=== PATIENT | male | born 1955 | race Caucasian/White ===

== ENCOUNTER 2019-08-29 00:48 | Emergency (ER) | payer OTHER, SELFPAY ==
--- NOTE | ~2019-08-29 | XR_ITS ---
EXAMINATION: XR abdomen/kub 1V DATE: 08/29/2019 02:38 INDICATION: Kidney stone TECHNIQUE: A supine view of the abdomen was obtained. COMPARISON: CT dated 08/29/2019 FINDINGS: Delayed left nephrogram with mild left hydroureteronephrosis extending to the distalmost left ureter where there is a tiny obstructing stone measuring 1-2 mm on the prior CT. Excreted contrast is seen i n the nondilated right renal collecting system and proximal to mid right ureter. Contrast opacificati on of the incompletely distended bladder. Couple phleboliths in the right hemipelvis. Normal bowel ga s pattern. IMPRESSION: 1. Obstructing 1-2 mm stone at the distalmost left ureter with delayed left nephrogram and mild left hydroureteronephrosis. Reviewed, dictated and finalized at location A. IMPRESSION: 1. Obstructing 1-2 mm stone at the distalmost left ureter with delayed left nep hrogram and mild left hydroureteronephrosis.
--- NOTE | ~2019-08-29 | CT_ITS ---
EXAMINATION: CT abdomen pelvis w con INDICATION: Left lower abdominal pain TECHNIQUE: Computed tomographic images of the abdomen and pelvis were obtained after the administrati on of 100 cc of Omnipaque 350 intravenous contrast. The dose-length product (DLP) was 408.75 mGy-cm. Automated exposure control and iterative reconstruction technique were employed. COMPARISON: 09/30/2016 FINDINGS: Minimal dependent atelectasis is present in the lung bases. The heart size is normal. Small stable nodules of the visualized lung bases are consistent with old granulomatous disease. The liver , spleen, pancreas, gallbladder, and adrenal glands are normal. Cysts of the kidneys measure up to 1. 6 cm on the left. There is a 2 mm stone in the distal left ureter which causes mild left hydrouretero nephrosis. There is perinephric stranding surrounding the left kidney. Nonobstructing left kidney sto johann measure up to 2 mm. No pathologically enlarged abdominal or pelvic lymph nodes are identified. Th ere is no free intraperitoneal gas or evidence of bowel obstruction. The appendix is normal. There is calcified atherosclerosis of the aorta and many of the other arteries. Colonic diverticulosis is pre sent without evidence of diverticulitis. IMPRESSION: 1. 2 mm stone of the distal left ureter causing mild left hydroureteronephrosis. Left perinephric fat stranding could suggest superimposed pyelonephritis. 2. Nonobstructing left nephrolithiasis. Reviewed, dictated and finalized at location B. IMPRESSION: 1. 2 mm stone of the distal left ureter causing mild left hydroureteronephrosis . Left perinephric fat stranding could suggest superimposed pyelonephritis. 2. Nonobstructing left nephrolithiasis.
--- NOTE | 2019-08-29 00:55 | ED.ABDPAIN ---
HPI - Abdominal Pain General Chief Complaint: Abdominal Pain Stated Complaint: abdo pain Time Seen by Provider: 08/29/19 00:54 Source: patient Mode of arrival: ambulatory Limitations: no limitations History of Present Illness HPI narrative: Pt is a 64 y/o male who presents to the ED with c/o LLQ ABD pain that started at 1900 last night. He denies N/V/D, or a fever. Pt states that he has a H/O arthritis and is Rx Vikodin. He took Vicodin at 2030 last night with no relief. MD elicited complaint: abdominal pain Onset (ago): hour(s) (6) Location: LLQ Relieving factors: nothing Treatments prior to arrival: prescription analgesics (Vicodin) Related Data Home Medications Medication Instructions Recorded Confirmed aspirin 81 mg PO DAILY 08/29/19 atorvastatin 20 mg PO DAILY 08/29/19 carvedilol 25 mg PO DAILY 08/29/19 celecoxib 200 mg PO DAILY 08/29/19 finasteride 5 mg PO DAILY 08/29/19 hydrocodone-acetaminophen 1 tablet PO TID PRN 08/29/19 metformin 1,000 mg PO DAILY 08/29/19 whszwysk-epz-tkczn-vit K-lycop 1 tablet PO DAILY 08/29/19 [Men's Multivitamin] omega 8-fdo-gia-fish oil [Fish Oil] 2 cap PO DAILY 08/29/19 pantoprazole 40 mg PO DAILY 08/29/19 ramipril 2.5 mg PO DAILY 08/29/19 tamsulosin 0.4 mg PO DAILY 08/29/19 Allergies Allergy/AdvReac Type Severity Reaction Status Date / Time No Known Allergies Allergy Verified 08/29/19 00:57 Review of Systems Review of Systems: All systems reviewed & are unremarkable except as noted in HPI and below Constitutional: Constitutional: Denies fever(s) Gastrointestinal: Gastrointestinal: Reports abdominal pain (LLQ), Denies diarrhea, Denies nausea and Denies vomiting PMFSH Past Medical History Medical History (Updated 08/29/19 @ 02:45 by Suresh Shen DO) Arthritis Surgical History Surgical History (Updated 08/29/19 @ 01:01 by Christen Burt) No significant past surgical history Social History Social History Smoking status: Former smoker Alcohol intake: never Gender identity (if verbalized by the patient): Male Exam Narrative: Exam Narrative: APPEARANCE: No acute distress, nontoxic, resting in bed HEENT: Normocephalic, atraumatic, OMM RESPIRATORY: No respiratory distress, clear to auscultation bilaterally with no rhonchi wheezing or rales CARDIOVASCULAR: RRR s murmur ABDOMINAL: Soft, nondistended, tender palpation left lower quadrant left lower quadrant, no tenderness right upper quadrant right lower quadrant, no rebound or guarding, left flank tenderness MUSCULOSKELETAl: Moves all extremities. No clubbing, cyanosis or edema. NEURO: Awake and alert. Following commands, speech normal, no focal deficits SKIN:: Warm, dry. Normal Color PSYCHIATRIC: Normal affect/mood Course Course Emergency Course: Patient states pain is improved at this time. States mild pain but states he drove himself to the emergency department does not have a ride and does not wish any further narcotics. Patient does have Casco and Flomax at home Discussed with patient results of workup and diagnosis. Discussed need for follow-up with primary care, proper use of medication, and reasons to return to the emergency department. Patient understands and agrees to current treatment plan Vital Signs Vital signs: Vital Signs Temperature 98.6 F 08/29/19 00:58 Pulse Rate 51 L 08/29/19 00:58 Respiratory Rate 22 H 08/29/19 00:58 Blood Pressure 160/72 H 08/29/19 00:58 Pulse Oximetry 100 08/29/19 00:58 Temperature 98.6 F 08/29/19 00:58 Pulse Rate 51 L 08/29/19 00:58 Respiratory Rate 22 H 08/29/19 00:58 Blood Pressure 160/72 H 08/29/19 00:58 Pulse Oximetry 100 08/29/19 00:58 MDM - Abdominal Pain Lab Data Result diagrams: 08/29/19 01:05 08/29/19 01:25 Labs: Lab Results 08/29/19 08/29/19 08/29/19 Range/Units 01:05 01:05 01:25 WBC 16.9 H (4.5-10.0) K/mm3 RBC
[2019-08-29 00:58] VITALS: BP 160/72; PULSE 51; RESP 22; TEMP 37; O2SAT 100
--- NOTE | 2019-08-29 01:01 | PC.NURSE ---
RN asked pt to urinate pt states he can't because he has prostate issues. RN asked pt if staff could straight cath him. pt refusing. RN asked pt how he voids normally. pt reports he just goes when it goes.
[2019-08-29 01:17] LABS: Basophils Absolute Auto 0.1 K/mm3 (0.0-0.1); Basophils Percent Auto 0.4 % (0.2-1.2); Hematocrit 39.9 % (42.0-52.0); Hemoglobin 13.4 g/dL (14.0-18.0); Immature Granulocyte Absolute 0.08 K/mm3 (0.00-0.031); Immature Granulocyte Percent A 0.5 % (0-0.5); Lymphocytes Absolute Auto 2.13 K/mm3 (0.9-3.2); Lymphocytes Percent Auto 12.6 % (18.3-44.2); Mean Corpuscular HGB Conc 33.6 g/dl (32-36); Mean Corpuscular Volume 89.3 fl (80-100); Mean Platelet Volume 9.6 fl (7.4-10.4); Monocytes Absolute Auto 0.8 K/mm3 (0.1-0.6); Monocytes Percent Auto 4.8 % (2.6-8.5); Neutrophils Absolute Auto 13.8 K/mm3 (1.3-6.7); Neutrophils Percent Auto 81.7 % (45.5-73.1); Platelet Count Result 264 k/mm3 (150-375); Red Blood Count 4.47 M/mm3 (4.6-6.20); White Blood Count 16.9 K/mm3 (4.5-10.0)
--- NOTE | 2019-08-29 01:19 | PC.NURSE ---
Patient being taken to radiology.
[2019-08-29 01:28] LABS: Estimated CRCL calculation 49 ml/min; Estimated Glomerular Filt Rate > 60
[2019-08-29 01:29] LABS: Alanine Aminotransferase 20 U/L (4-50); Albumin Level 4.1 g/dL (3.5-5.1); Alkaline Phosphatase 110 U/L (38-126); Aspartate Amino Transferase 17 U/L (17-59); Bilirubin,Total 0.6 mg/dL (0.2-1.3); Blood Urea Nitrogen 16 mg/dL (9-20); Calcium 8.9 mg/dL (8.4-10.2); Carbon Dioxide 23 mmol/L (22-30); Chloride 105 mmol/L (98-107); Estimated CRCL calculation 53 ml/min; Estimated Glomerular Filt Rate > 60; Glucose 165 mg/dL (75-110); Lipase 92 U/L (23-300); Potassium 3.5 mmol/L (3.4-5.0); Sodium 138 mmol/L (137-145)
[2019-08-29] MEDS: KETOROLAC 30 MG/ML VIAL (*BKC) IV PUSH (01:38)
[2019-08-29 02:33] LABS: Add Urine Microscopic? YES; Appearance Urine Clear (Clear); Bilirubin Urine Negative (Negative); Blood Urine Negative (Negative); Color Urine Yellow (Yellow); Glucose Urine UA Negative (Negative); Ketones Urine 1+ mg/dL (Negative); Leukocyte Esterase Ur Negative LEU/UL (Negative); Mucus Urine Rare /lpf; Nitrate Urine Negative (Negative); Protein Urine Negative (Negative); Squamous Epithelial Cell Urine Rare /hpf (Few); Urobilinogen Urine Negative mg/dL (<2.0); WBC Urine 0-3 /hpf
[2019-08-29 03:21] VITALS: BP 130/70; PULSE 65; RESP 20; O2SAT 98
== END 2019-08-29 03:10 | disposition home or self-care (01) ==
PROVIDERS: Emergency Provider Emergency Medicine; PCP Family Medicine Adolescent Medicine
DX: N13.2 Hydronephrosis with renal and ureteral calculous obstruction (principal); M19.90 Unspecified osteoarthritis, unspecified site; Z87.891 Personal history of nicotine dependence
CPT/HCPCS: 36415; 74018; 74177; 80053; 81001; 83690; 85025; 96374; 99284; J1885; Q9967

== ENCOUNTER 2020-06-07 00:31 | Outpatient (CLI) | payer OTHER, SELFPAY ==
[2020-06-07 18:50] LABS: SARS-CoV-2 RNA PCR Negative
== END 2020-06-07 00:32 | disposition home or self-care (01) ==
LOC: ANHCOVIDDT 00:31
PROVIDERS: PCP Family Medicine Adolescent Medicine; Visit Provider Urology
DX: Z01.812 Encounter for preprocedural laboratory examination (principal); Z20.822 Contact with and (suspected) exposure to COVID-19
CPT/HCPCS: C9803; U0003

== ENCOUNTER 2020-06-07 08:16 | Outpatient (CLI) | payer OTHER, SELFPAY ==
[2020-06-07 09:02] LABS: Anion Gap 7 mmol/L (8-16); Blood Urea Nitrogen 14 mg/dL (9-20); Calcium 9.1 mg/dL (8.4-10.2); Carbon Dioxide 30 mmol/L (22-30); Chloride 103 mmol/L (98-107); Estimated Glomerular Filt Rate > 60; Glucose 227 mg/dL (75-110); Potassium 3.9 mmol/L (3.4-5.0); Sodium 140 mmol/L (137-145)
== END 2020-06-07 08:17 | disposition home or self-care (01) ==
LOC: ANHSURGERY 08:19
PROVIDERS: Anesthesiology; PCP Family Medicine Adolescent Medicine; Visit Provider Urology
DX: Z01.818 Encounter for other preprocedural examination (principal); E11.9 Type 2 diabetes mellitus without complications
CPT/HCPCS: 36415; 80048

== ENCOUNTER 2020-06-10 00:17 | Day surgery (SDC) | payer OTHER, SELFPAY ==
--- NOTE | 2020-06-02 08:40 | P.HP_ITS ---
History of Present Illness History of Present Illness Consent: Risks, benefits, and alternatives have been discussed and questions answered. Patient agrees to proceed with procedure. Chief complaint: BPH Narrative: Andrew Damon is a 64 year old male with longstanding BPH becoming refractory to combination medical therapy. Cystoscopy and TRUS show a 20gm prosate with predominately lateral lobe enlargement. We've discussed alternative treatment options for bladder outlet obstruction, including TURP, Rezum, Green light laser and Urolift and he's elected for the later. He's aware of risks including, but not limited to, failure to correct his symptoms, hemat uria, incontinence and retrograde ejaculation. Review of Systems Cardiovascular: Cardiovascular: Denies chest pain, Denies lightheadedness, Denies palpitations and Denies dyspnea Respiratory: Respiratory: Denies dyspnea Gastrointestinal: Gastrointestinal: Denies diarrhea, Denies nausea and Denies vomiting Genitourinary: Genitourinary: Denies hematuria and Denies dysuria Endocrine: Endocrine: Denies palpitations PMFSH Past Medical History Medical History Arthritis Surgical History Surgical History No significant past surgical history Social History Social History Smoking status: Former smoker Alcohol intake: never Gender identity (if verbalized by the patient): Male Meds Home Medications and Allergies Home Medications Medication Instructions Recorded Confirmed Type aspirin 81 mg PO DAILY 08/29/19 History atorvastatin 20 mg PO DAILY 08/29/19 History carvedilol 25 mg PO DAILY 08/29/19 History celecoxib 200 mg PO DAILY 08/29/19 History finasteride 5 mg PO DAILY 08/29/19 History hydrocodone-acetaminophen 1 tablet PO TID PRN 08/29/19 History ibuprofen [IBU] 600 mg PO Q6H PRN #20 tablet 08/29/19 Rx metformin 1,000 mg PO DAILY 08/29/19 History mrbicvke-emh-jnjfq-vit K-lycop 1 tablet PO DAILY 08/29/19 History [Men's Multivitamin] omega 0-phf-vwm-fish oil [Fish Oil] 2 cap PO DAILY 08/29/19 History ondansetron 4 mg PO Q6H PRN #10 tablet 08/29/19 Rx pantoprazole 40 mg PO DAILY 08/29/19 History ramipril 2.5 mg PO DAILY 08/29/19 History tamsulosin 0.4 mg PO DAILY 08/29/19 History Allergies Allergy/AdvReac Type Severity Reaction Status Date / Time No Known Allergies Allergy Verified 08/29/19 00:57 Exam Const: General: no acute distress Resp: Effort & Inspection: normal respiratory effort GI: Inspection: non-distended GI Palp: No abdominal tenderness and No Guarding due to palpation present (GI) Auscultation: normal bowel sounds Assessment and Plan Assessment and plan (1) BPH loc w urin obs/LUTS: Code(s): N40.1 - Benign prostatic hyperplasia with lower urinary tract symptoms Status: Acute Assessment and Plan: * UroLift
[2020-06-02 13:38] VITALS: BMI 24.1
--- NOTE | 2020-06-09 11:07 | WPDANESEPPF ---
Anes - Initial Pre Proc Eval Procedure: Operation Date: 06/10/20 07:30 Proposed Procedures p Urolift - Porfirio Martinez MD Date/Time: 06/09/20 11:07 Surgeon: Porfirio Martinez MD Pre Op Diagnosis: BPH Patient Data Age: 64 Gender: M Height: 1.65 m Weight: 65.9 kg Allergies Allergy/AdvReac Type Severity Reaction Status Date / Time No Known Allergies Allergy Verified 06/10/20 06:00 Home Medications Medication Instructions Recorded Confirmed Type aspirin 81 mg PO DAILY 08/29/19 06/10/20 History atorvastatin 20 mg PO DAILY 08/29/19 06/10/20 History carvedilol 25 mg PO BID 08/29/19 06/10/20 History celecoxib 200 mg PO DAILY 08/29/19 06/10/20 History metformin 1,000 mg PO BID 08/29/19 06/10/20 History nqlfiyen-aeg-ewzas-vit K-lycop 1 tablet PO DAILY 08/29/19 06/10/20 History [Men's Multivitamin] omega 9-dec-btv-fish oil [Fish Oil] 2 cap PO BID 08/29/19 06/10/20 History pantoprazole 40 mg PO DAILY 08/29/19 06/10/20 History ramipril 2.5 mg PO DAILY 08/29/19 06/10/20 History tamsulosin 0.4 mg PO BID 08/29/19 06/10/20 History hydrocodone-acetaminophen 1 tablet PO TID PRN 06/02/20 06/10/20 History Patient hx anesthesia problems: none Family hx anesthesia problems: none PMFSH Past Medical History Medical History (Updated 06/09/20 @ 11:08 by Juan Sauceda DO) Arthritis BPH (benign prostatic hyperplasia) Diabetes type 2, controlled GERD (gastroesophageal reflux disease) Hyperlipidemia Hypertension Neuropathy Surgical History Surgical History (Updated 06/09/20 @ 11:08 by Juan Sauceda DO) History of coronary artery stent placement x3 No significant past surgical history Social History Social History Smoking packs per day: 1 Smoking cigarettes per day: 20.0 Years smoked: 37 Smoking pack-years: 37.00 Smoking status: Former smoker Smoking end date: 06/02/08 Alcohol intake: never Substance use: current Substance use type: marijuana Living arrangements: with family Gender identity (if verbalized by the patient): Male Spiritual care concerns: No Anes - Eval Final PreProcedure Day of Procedure 06/09/20 11:07 Patient weight: normal Heart: regular rate and rhythm Lungs: clear to auscultation and normal air movement Airway: Mallampati scale class II Neurological: alert and oriented Last oral intake: >/= 8 hours ASA classification: III Emergent: no Anesthetic plan: proceed Anesthesia type and monitoring: general LMA and standard monitoring Informed Consent: The patient's anesthetic plan and its attendant risks and benefits were discussed with the patient/family/POA. Questions were solicited and answers provided to the satisfaction of the patient/family/POA.
[2020-06-10] VITALS (7 sets, daily range): BP systolic 90–136; BP diastolic 43–89; PULSE 56–67; RESP 11–20; TEMP 36.2–36.7; O2SAT 99–100
[2020-06-10] MEDS: LACTATED RINGERS 1,000 ML 30 ML IV CONT (06:22)
[2020-06-10] MEDS: LIDOCAINE HCL 2% GEL UROJET 10 ML PKG MUCOUS MEM (07:05)
[2020-06-10 07:07] LABS: Glucose Point of Care 110 (65-105)
--- NOTE | 2020-06-10 07:13 | WPDHPUPDATE1 ---
History and Physical Update Update Date/Time: 06/10/20 07:13 History and Physical has been reviewed, including an updated exam of the patient. There are NO changes in the patient's condition. Risks, benefits, and alternatives have been discussed and questions answered. Patient agrees to proceed with procedure.
[2020-06-10] MEDS: ceFAZolin 2 GM/D5W 50 ML 2 GM/50 ML BAG IVPB (07:17)
--- NOTE | 2020-06-10 07:37 | P.OP_ITS ---
Procedure Note - Detailed Date of procedure: 06/10/20 Pre-op diagnosis: BPH Post-op diagnosis: same Procedure performed: UroLift Description of procedure: The patient was prepped and draped in a routine fashion after the uneventful induction of a general LMA anesthetic. A 20F cystoscope was inserted into the bladder. The cystoscopy bridge was replaced with a UroLift delivery device. The first treatment site was the patient's right side approximately 1.5cm distal to the bladder neck. The distal tip of the delivery device was then angled laterally approximately 20 degrees at this position to compress the lateral lobe. The trigger was pulled, thereby deploying a needle containing the implant through the prostate. The needle was then retracted, allowing one end of the implant to be delivered to the capsular surface of the prostate. The implant was then tensioned to assure capsular seating and removal of slack monofilament. The device was then angled back toward midline and slowly advanced proximally (typically 3 to 4 mm) until cystoscopic verification of the monofilament being centered in the delivery bay. The urethral end piece was then affixed to the monofilament thereby tailoring the size of the implant. Excess filament was then severed. The delivery device was then re-advanced into the bladder. The delivery device was then replaced with cystoscope and bridge and the implant location and opening effect was conf irmed cystoscopically. The same procedure was then repeated on the left side, and two additional implants were delivered just proximal to the verumontanum, again one on right and one on left side of the prostate, following the same technique. Therefore, a total of 4 implants were delivered. A final cystoscopy was conducted first to inspect the location and state of each implant and second, to confirm the presence of a continuous anterior channel was present through the prostatic urethra with irrigation flow turned off. The bladder was then filled with 150 cc irrigation fluid to assist the patient in void trial after the procedure, and all instruments were removed. At this point the cystoscope was removed and the patient was taken to the PACU in good condition. Anesthesia: GLMA Surgeon: Porfirio Martinez MD Computer Numerical Control Programmer: None Estimated blood loss (mL): 0 Drains: No Packing: No Pathology: none sent Complications: No immediate complications Condition: stable Disposition: PACU
[2020-06-10 07:49] LABS: Glucose Point of Care 105 (65-105)
[2020-06-10] MEDS: oxyCODONE HCL (*CRX) 5 MG TAB IR PO (08:49)
== END 2020-06-10 09:30 | disposition home or self-care (01) ==
PROVIDERS: PCP Family Medicine Adolescent Medicine; Visit Provider Urology
PROC: 0T7D8DZ Dilation of Urethra with Intraluminal Device, Via Natural or Artificial Opening Endoscopic (ICD-10-PCS; CPT 52441; principal; 2020-06-10 07:30)
DX: N40.1 Benign prostatic hyperplasia with lower urinary tract symptoms (principal); M19.90 Unspecified osteoarthritis, unspecified site; Z79.82 Long term (current) use of aspirin; Z79.84 Long term (current) use of oral hypoglycemic drugs; E11.40 Type 2 diabetes mellitus with diabetic neuropathy, unspecified; K21.9 Gastro-esophageal reflux disease without esophagitis; I10 Essential (primary) hypertension; E78.5 Hyperlipidemia, unspecified; Z87.891 Personal history of nicotine dependence
CPT/HCPCS: 52441; 52442 ×3; 36415; 80048; A9270; C9803; J0690; J1100; J2001; J2250; J2405; J2704; J3010; J7120; L8699; U0003

== ENCOUNTER 2024-03-09 19:17 | Emergency (ER) | payer MEDICARE, SELFPAY ==
--- NOTE | 2024-03-09 19:22 | ED.DENTAL ---
HPI - Dental/Oral General Chief complaint: Dental/Oral Stated complaint: left side tooth pain,swelling Time Seen by Provider: 03/09/24 19:22 Source: patient, RN notes reviewed and old records reviewed Mode of arrival: ambulatory Limitations: no limitations History of Present Illness HPI Narrative: Patient presents with of right-sided facial swelling and pain. He reports that a right lower molar broke a week ago, his dentist has seen the tooth, he has an appointment for March 18 to have the remaining part of the tooth extracted. He began to notice increasing pain yesterday, awakened this morning with mild swelling and now has very significant swelling to the right side of the face. He is able to manage his own secretions. No drooling or stridor. Swelling does not extend down to the neck. Patient is still able to eat and drink. Denies any fever, chills, sweats. Denies any injury or trauma. Voices no other concerns or complaints at this time. He has been taking Vicodin, reports that he still is in significant pain Related Data Home Medications Medication Instructions Recorded Confirmed aspirin 81 mg tablet,delayed 81 mg PO DAILY 08/29/19 03/09/24 release carvedilol 25 mg tablet 25 mg PO BID 08/29/19 03/09/24 uqgqcvxh-gdasqbnt-hfstt acid 400 1 tablet PO DAILY 08/29/19 03/09/24 mcg-vit K 20 mcg-lycop 300 mcg tablet (Men's Multivitamin) ramipril 2.5 mg capsule 2.5 mg PO DAILY 08/29/19 03/09/24 Allergies Allergy/AdvReac Type Severity Reaction Status Date / Time metformin AdvReac Intermediate Diarrhea Verified 03/09/24 19:22 diclofenac AdvReac Mild Diarrhea Verified 03/09/24 19:22 Review of Systems Review of Systems: All systems reviewed & are unremarkable except as noted in HPI and below Constitutional: Constitutional: Reports no additional constitutional complaints ENT: Reports system reviewed and no additional complaints, except as documented, Reports as per HPI, Reports dental pain and Reports facial pain Cardiovascular: Cardiovascular: Reports no additional cardiovascular complaints Respiratory: Respiratory: Reports no additional respiratory complaints Gastrointestinal: Gastrointestinal: Reports no additional gastrointestinal complaints PMFSH Past Medical History Medical History Arthritis BPH (benign prostatic hyperplasia) Diabetes type 2, controlled GERD (gastroesophageal reflux disease) Hyperlipidemia Hypertension Neuropathy Surgical History Surgical History History of coronary artery stent placement x3 2008 No significant past surgical history Family History Family History Father Heart disease Social History Social History Smoking packs per day: 1 Smoking cigarettes per day: 20.0 Years smoked: 37 Smoking pack-years: 37.00 Smoking status: Former smoker Second hand tobacco smoke exposure: No Smoking end date: 06/02/08 Alcohol intake: never Substance use: current Substance use type: marijuana Lack of Transportation: No Lack of Food: Never True Current Housing: I Have Housing Concerned About Future Housing: No Difficulty Paying Gas/Electric Bills: No Difficulty Paying for Meds: No Currently Unemployed: No Education: High School Diploma/GED Difficulty w/ Childcare or Family Care: No Living arrangements: with family Occupation/Education: occupation Gender identity (if verbalized by the patient): Male Sexual Orientation (if Verbalized by the Patient): Straight or Heterosexual Spiritual care concerns: No Agree to blood products: Yes Comments At the time of my signature, I reviewed and agree with the nursing past medical, surgical, social, and family history. There is no relevant family history pertinent to the raul
[2024-03-09 19:27] VITALS: BP 148/77; PULSE 90; RESP 16; TEMP 37.2; O2SAT 99
== END 2024-03-09 19:47 | disposition home or self-care (01) ==
PROVIDERS: Emergency Provider Nurse Practitioner Family; PCP Family Medicine Adolescent Medicine
DX: K04.7 Periapical abscess without sinus (principal); Z87.891 Personal history of nicotine dependence; F12.90 Cannabis use, unspecified, uncomplicated; M19.90 Unspecified osteoarthritis, unspecified site; N40.0 Benign prostatic hyperplasia without lower urinary tract symptoms; K21.9 Gastro-esophageal reflux disease without esophagitis; E78.5 Hyperlipidemia, unspecified; I10 Essential (primary) hypertension; E11.40 Type 2 diabetes mellitus with diabetic neuropathy, unspecified; Z95.5 Presence of coronary angioplasty implant and graft
CPT/HCPCS: 99213; G0463

== ENCOUNTER 2024-07-31 15:20 | Outpatient (CLI) | payer MEDICARE, SELFPAY ==
[2024-07-31 15:45] LABS: Anion Gap 8 mmol/L (4-12); Blood Urea Nitrogen 17 mg/dL (9-20); Calcium 8.5 mg/dL (8.4-10.2); Carbon Dioxide 27 mmol/L (22-30); Chloride 107 mmol/L (98-107); Estimated Glomerular Filt Rate > 60; Glucose 75 mg/dL (65-110); Potassium 3.9 mmol/L (3.4-5.0); Sodium 142 mmol/L (137-145)
== END 2024-07-31 15:21 | disposition home or self-care (01) ==
LOC: ANHLAB 15:21
PROVIDERS: PCP Family Medicine Adolescent Medicine; Visit Provider Anesthesiology
DX: Z01.818 Encounter for other preprocedural examination (principal); K40.30 Unilateral inguinal hernia, with obstruction, without gangrene, not specified as recurrent; E11.42 Type 2 diabetes mellitus with diabetic polyneuropathy; E11.9 Type 2 diabetes mellitus without complications; E78.2 Mixed hyperlipidemia
CPT/HCPCS: 36415; 80048; 86850; 86900; 86901; 93005

== ENCOUNTER 2024-08-04 00:27 | Day surgery (SDC) | payer MEDICARE, SELFPAY ==
[2024-07-30 15:37] VITALS: BMI 26.4
--- NOTE | 2024-07-30 15:50 | PC.NURSE ---
Report to the Outpatient Waiting Room, entrance under the green pavilion located off [facility], at time _0930am on date __08/04/24 . Planned Procedure Time: ___1130am .? Time changes happen often and if your time is changed the preop area will call you the afternoon before. - You and your visitor will be asked to self-screen and do not enter if you have any COVID symptoms. Please call surgeon if you need to reschedule. - A mask is optional within the hospital at this time. Patients may have clear liquids (water, carbonated beverages, clear teas, apple juice) until 3 hours prior to surgery with a maximum of 20 ounces. - No food from midnight until time of surgery and no smoking, or chewing tobacco (or any form of nicotine). No chewing gum, candy or mints( 0830am). Take only the following medications with a SIP of water on the morning of surgery: Coreg and Hydrocodone if needed that am DO NOT STOP ANY OF YOUR OTHER PRESCRIPTION MEDICATIONS PRIOR TO SURGERY EXCEPT THE FOLLOWING Hold all vitamins and supplements for 3 days per anesthesiologist.Date to take last dose__08/27/24 Medications to discontinue per physician None Date to take last dose None Please no make-up, nail kenyan, hairspray, perfume, deodorant, or body powder the day of surgery.? No jewelry (including any body piercings) or valuables the day of surgery, leave them at home.? Please take a shower or bath the night before, or the morning of, surgery with an antibacterial soap.? Wear comfortable, loose fitting clothing.? - Jewelry must be removed prior to entering the operating room.? Rings and piercings that are not removed may be cut off. - The hospital will not accept responsibility for valuables.? - Please leave all valuables, including medications, at home the day of surgery. If you are going home after surgery, a licensed driver/refuse collector must drive you home.? - NO public transportation without another adult if you receive anesthesia. - We recommend that an adult stay with you for 24 hours following discharge. - We also recommend that you do not drive, make important decision, drink alcoholic beverages, or take any drugs that were not prescribed by your health care provider for at least 24 hours after your discharge time. Follow any additional instructions given to you from your surgeon. Telephone instructions given to ___Patient and asked if any additional questions and then verbalized understanding. Patient advised to call surgeon office or pre surgery nurse liaison [phone] if any additional questions.
[2024-08-04] VITALS (9 sets, daily range): BP systolic 117–158; BP diastolic 59–79; PULSE 58–65; RESP 11–18; TEMP 36.1–36.6; O2SAT 97–100; BMI 26.2
[2024-08-04 10:31] LABS: Glucose Point of Care 152 mg/dl (65-105)
[2024-08-04] MEDS: LACTATED RINGERS 1,000 ML 30 ML IV CONT ×2 (10:37→14:30)
[2024-08-04] MEDS: ACETAMINOPHEN 500 MG TABLET 1000 MG PO (10:38)
[2024-08-04] MEDS: KETOROLAC 15 MG/ML VIAL (*BKC) IV PUSH (10:38)
--- NOTE | 2024-08-04 10:51 | WPDANESEPPF ---
Anes - Initial Pre Proc Eval Procedure: Operation Date: 08/04/24 12:00 Proposed Procedures p Robotic Incarcerated Right Inguinal Hernia Repair with Mesh - Romy Morris MD Date/Time: 08/04/24 10:51 Surgeon: Romy Morris MD Pre Op Diagnosis: Incarcerated Right Inguinal Hernia Patient Data Age: 69 Gender: M Height: 1.65 m Weight: 71.3 kg Allergies Allergy/AdvReac Type Severity Reaction Status Date / Time metformin AdvReac Intermediate Diarrhea Verified 08/04/24 10:17 diclofenac AdvReac Mild Diarrhea Verified 08/04/24 10:17 Home Medications ?Medication ?Instructions ?Recorded ?Confirmed ?Type aspirin 81 mg tablet,delayed 81 mg PO DAILY 08/29/19 07/30/24 History release carvedilol 25 mg tablet 25 mg PO BID 08/29/19 08/04/24 History ietslrrc-ucrrdlqv-tgiso acid 400 1 tablet PO DAILY 08/29/19 08/04/24 History mcg-vit K 20 mcg-lycop 300 mcg tablet (Men's Multivitamin) ramipril 2.5 mg capsule 2.5 mg PO DAILY 08/29/19 07/30/24 History sildenafil 100 mg tablet 100 mg PO DAILY PRN sexual 02/26/23 07/30/24 Rx activity #7 tabs glimepiride 1 mg tablet See Rx Instructions .Route 11/19/23 07/30/24 Rx .COMPLEX #90 tabs atorvastatin 40 mg tablet 40 mg PO DAILY #90 tabs 01/27/24 07/30/24 Rx gabapentin 300 mg capsule 300 mg PO QHS #30 caps 03/18/24 07/30/24 Rx pantoprazole 40 mg tablet,delayed 40 mg PO DAILY #90 tabs 04/21/24 07/30/24 Rx release alfuzosin 10 mg tablet,extended 10 mg PO DAILY #90 tabs 05/19/24 07/30/24 Rx release 24 hr eszopiclone 3 mg tablet (Lunesta) 3 mg PO QHS #30 tabs 06/23/24 07/30/24 Rx saw palmetto 160 mg capsule 160 mg PO QAM 06/26/24 08/04/24 History turmeric 400 mg capsule 400 mg PO QHS 06/26/24 08/04/24 History hydrocodone 10 mg-acetaminophen 1 tablet PO TID PRN pain #90 tabs 02/03/25 03/03/25 Rx 325 mg tablet nitroglycerin 0.4 mg sublingual 0.4 mg sublingual Q5M PRN chest 07/30/24 07/30/24 History tablet pain Laboratory Tests 08/04/24 08/04/24 10:29 10:35 PT Pending INR Pending APTT Pending POC Capillary Glucose 152 H mg/dl (65-105) Patient hx anesthesia problems: none Family hx anesthesia problems: none Results Review: All pre-operative results and documents have been reviewed as part of the pre-operative evaluation. [facility] Past Medical History Medical History Neuropathy Diabetes type 2, controlled BPH (benign prostatic hyperplasia) GERD (gastroesophageal reflux disease) Hyperlipidemia Hypertension Arthritis Surgical History Surgical History History of coronary artery stent placement x3 2008 No significant past surgical history Family History Family History Father Heart disease Social History Social History Smoking packs per day: 1 Smoking cigarettes per day: 20.0 Years smoked: 37 Smoking pack-years: 37.00 Smoking status: Former smoker Tobacco type: cigarettes Second hand tobacco smoke exposure: No Smoking end date: 06/02/08 Additional smoking assessment comments: Denies nicotine Alcohol intake: never Substance use: current Substance use type: marijuana Other substance usage details: Smokes marijuana daily for medical Do You Feel Safe in your Home?: Yes Lack of Transportation: No Lack of Food: Never True Current Housing: I Have Housing Concerned About Future Housing: No Difficulty Paying Gas/Electric Bills: No Difficulty Paying for Meds: No Currently Unemployed: No Education: High School Diploma/GED Difficulty w/ Childcare or Family Care: No Living arrangements: with family Additional living arrangements comments: Step daughter and Grandson Occupation/Education: occupation Gender identity (if verbalized by the patient): Male Sexual Orientation (if Verbalized by the Patient): Straight or Heterosexual Spiritual care concerns: No Agree to blood products: Yes Anes - Eval Final PreProcedure Day of Procedure 08/04/24 10:51 Patient weight: overweight Heart: regular rate and rhythm Lungs: clear to auscultation Airway: Mallampati scale class II Neurological: alert and oriented Last oral intake: >/= 8 hours ASA classification: III Emergent: no Anesthetic plan: proceed Anesthesia type and monitoring: general GIVS and standard monitoring Results Review: All pre-operative results and documents have been reviewed as part of the pre-operative evaluation. Informed Consent: The patient's anesthetic plan and its attendant risks and benefits were discussed with the patient/family/POA. Questions were solicited and answers provided to the satisfaction of the patient/family/POA.
[2024-08-04 10:57] LABS: Prothrombin Time 13.4 Seconds (11.1-14.7)
[2024-08-04 10:58] LABS: Partial Thromboplastin Time 32.2 Seconds (22.3-36.8)
--- NOTE | 2024-08-04 11:53 | WPDHPUPDATE1 ---
History and Physical Update Update Date/Time: 08/04/24 11:53 History and Physical has been reviewed, including an updated exam of the patient. There are NO changes in the patient's condition. Risks, benefits, and alternatives have been discussed and questions answered. Patient agrees to proceed with procedure.
--- NOTE | 2024-08-04 12:24 | WPDANESEPPF ---
Anes - Initial Pre Proc Eval Procedure: Operation Date: 08/04/24 12:00 Proposed Procedures p Robotic Incarcerated Right Inguinal Hernia Repair with Mesh - Romy Morris MD Date/Time: 08/04/24 12:24 Surgeon: Romy Morris MD Pre Op Diagnosis: Incarcerated Right Inguinal Hernia Patient Data Age: 69 Gender: M Height: 1.65 m Weight: 71.3 kg Last Vital Signs Temp 98 F 08/04/24 10:20 Pulse 58 L 08/04/24 10:20 Resp 18 08/04/24 10:20 BP 147/79 H 08/04/24 10:20 Pulse Ox 98 08/04/24 10:20 O2 Del Method Room Air 08/04/24 10:20 Allergies Allergy/AdvReac Type Severity Reaction Status Date / Time metformin AdvReac Intermediate Diarrhea Verified 08/04/24 10:17 diclofenac AdvReac Mild Diarrhea Verified 08/04/24 10:17 Home Medications ?Medication ?Instructions ?Recorded ?Confirmed ?Type aspirin 81 mg tablet,delayed 81 mg PO DAILY 08/29/19 07/30/24 History release carvedilol 25 mg tablet 25 mg PO BID 08/29/19 08/04/24 History gutlknrt-jembibaq-tddih acid 400 1 tablet PO DAILY 08/29/19 08/04/24 History mcg-vit K 20 mcg-lycop 300 mcg tablet (Men's Multivitamin) ramipril 2.5 mg capsule 2.5 mg PO DAILY 08/29/19 07/30/24 History sildenafil 100 mg tablet 100 mg PO DAILY PRN sexual 02/26/23 07/30/24 Rx activity #7 tabs glimepiride 1 mg tablet See Rx Instructions .Route 11/19/23 07/30/24 Rx .COMPLEX #90 tabs atorvastatin 40 mg tablet 40 mg PO DAILY #90 tabs 01/27/24 07/30/24 Rx gabapentin 300 mg capsule 300 mg PO QHS #30 caps 03/18/24 07/30/24 Rx pantoprazole 40 mg tablet,delayed 40 mg PO DAILY #90 tabs 04/21/24 07/30/24 Rx release alfuzosin 10 mg tablet,extended 10 mg PO DAILY #90 tabs 05/19/24 07/30/24 Rx release 24 hr eszopiclone 3 mg tablet (Lunesta) 3 mg PO QHS #30 tabs 06/23/24 07/30/24 Rx saw tevino 160 mg capsule 160 mg PO QAM 06/26/24 08/04/24 History turmeric 400 mg capsule 400 mg PO QHS 06/26/24 08/04/24 History nitroglycerin 0.4 mg sublingual 0.4 mg sublingual Q5M PRN chest 07/30/24 07/30/24 History tablet pain hydrocodone 10 mg-acetaminophen 1 tablet PO TID PRN pain #90 tabs 08/04/24 Rx 325 mg tablet Laboratory Tests 08/04/24 08/04/24 10:29 10:35 PT 13.4 Seconds (11.1-14.7) INR 1.0 APTT 32.2 Seconds (22.3-36.8) POC Capillary Glucose 152 H mg/dl (65-105) Patient hx anesthesia problems: none Family hx anesthesia problems: none Results Review: All pre-operative results and documents have been reviewed as part of the pre-operative evaluation. [facility] Past Medical History Medical History Neuropathy Diabetes type 2, controlled BPH (benign prostatic hyperplasia) GERD (gastroesophageal reflux disease) Hyperlipidemia Hypertension Arthritis Surgical History Surgical History History of coronary artery stent placement x3 2008 No significant past surgical history Family History Family History Father Heart disease Social History Social History Smoking packs per day: 1 Smoking cigarettes per day: 20.0 Years smoked: 37 Smoking pack-years: 37.00 Smoking status: Former smoker Tobacco type: cigarettes Second hand tobacco smoke exposure: No Smoking end date: 06/02/08 Additional smoking assessment comments: Denies nicotine Alcohol intake: never Substance use: current Substance use type: marijuana Other substance usage details: Smokes marijuana daily for medical Do You Feel Safe in your Home?: Yes Lack of Transportation: No Lack of Food: Never True Current Housing: I Have Housing Concerned About Future Housing: No Difficulty Paying Gas/Electric Bills: No Difficulty Paying for Meds: No Currently Unemployed: No Education: High School Diploma/GED Difficulty w/ Childcare or Family Care: No Living arrangements: with family Additional living arrangements comments: Step daughter and Grandson Occupation/Education: occupation Gender identity (if verbalized by the patient): Male Sexual Orientation (if Verbalized by the Patient): Straight or Heterosexual Spiritual care concerns: No Agree to blood products: Yes Anes - Eval Final PreProcedure Day of Procedure 08/04/24 12:24 Patient weight: overweight Lungs: normal air movement Airway: Mallampati scale and special considerations (Missing L upper, and R lower teeth (prev partial missing). ) Neurological: alert and oriented Last oral intake: >/= 8 hours ASA classification: III Emergent: no Anesthetic plan: proceed Anesthesia type and monitoring: general ETT and standard monitoring Results Review: All pre-operative results and documents have been reviewed as part of the pre-operative evaluation. PTCA 2007, recent stress test reported nml, ex smoker. Neuropathy, overall good functional status. Informed Consent: The patient's anesthetic plan and its attendant risks and benefits were discussed with the patient/family/POA. Questions were solicited and answers provided to the satisfaction of the patient/family/POA.
[2024-08-04] MEDS: ceFAZolin 2 GM/D5W 50 ML 2 GM/50 ML BAG IVPB (12:40)
[2024-08-04] MEDS: BUPIVACAINE/EPINEPHRINE 0.5% 30 ML VIAL INFILTRATE (13:04)
--- NOTE | 2024-08-04 14:23 | W.PM.PROC2 ---
Procedure Note - Detailed Date of Procedure 08/04/24 Pre-op Diagnosis Incarcerated Right Inguinal Hernia Post-op Diagnosis Other ( Incarcerated right inguinal hernia, left inguinal hernia) Procedure Performed robotic assisted repair incarcerated right inguinal hernia with mesh, left inguinal hernia repair with mesh Surgeon Romy Morris MD Anesthesia General and Local Indications 69-year-old male presenting with a large incarcerated right inguinal hernia. Difficult exam given large incarcerated right inguinal hernia, suspect left inguinal hernia Findings incarcerated right inguinal hernia with cecum and appendix, moderate sized left inguinal hernia Description of Procedure Patient was brought into the operating room and placed in the supine position. After adequate induction of general anesthesia, the patient was prepped and draped in normal sterile fashion. A time-out was then done to verify the patient's identity, as well as the procedure being performed. I began by making a 8 mm incision in the supraumbilical region, a Veress needle was then placed into the peritoneal cavity. CO2 gas was then insufflated and after adequate pneumoperitoneum was achieved, the Veress needle was removed. I then placed an 8 mm trocar through this incision. I then placed the endoscope through this trocar site and under direct visualization placed 2 further 8 mm ports in the right and left mid abdomen. The [email or web address] robot was then docked to the 3 trocar sites. I then scrubbed out and went to the robotic console. Upon examining the pelvis, it was noted that the patient had a large incarcerated right inguinal hernia. The left side was examined and a moderate sized hernia defect was noted. The right side was noted to be incarcerated with cecum and appendix. This was carefully reduced and the contents were noted to be viable and grossly pathology free. Once reduced, I began by making a preperitoneal flap approximately 6 cm superior to the right sided defect. This flap was carried medially past the umbilical ligaments and laterally to the transversalis. It then began dissection of my medial compartment taking this down to the pubic tubercle. No direct defect was noted. I then began the lateral dissection taking this down to the transversalis fascia. Once these compartments were achieved, I began dissection around the cord structures. A large indirect hernia was noted at this point. Using careful dissection, was able to reduce indirect hernia sac off the cord structures. Once this was adequately done, I went ahead and placed a large piece of 3D Max mesh into the abdominal cavity. The mesh was carefully positioned, centering the center of the mesh over the indirect defect. Once this was done, was very satisfied with our repair. Using 3-0 Vicryl sutures, I tacked the mesh medially to Jose's ligament. Two lateral sutures were placed from the mesh to the transversalis fascia. I then began on the left side by making a preperitoneal flap approximately 6 cm superior to the left sided defect. This flap was carried medially past the umbilical ligaments and laterally to the transversalis. It then began dissection of my medial compartment taking this down to the pubic tubercle. A small direct defect was noted and reduced. I then began the lateral dissection taking this down to the transversalis fascia. Once these compartments were achieved, I began dissection around the cord structures. A moderate sized indirect hernia was noted at this point. Using careful dissection, was able to reduce indirect hernia sac off the cord structures. Once this was adequately done, I went ahead and placed a large piece of 3D Max mesh into the abdominal cavity. The mesh was carefully positioned, centering the center of the mesh over the indirect defect. Once this was done, was very satisfied with our repair. Using 3-0 Vicryl sutures, I tacked the mesh medially to Jose's ligament. Two lateral sutures were placed from the mesh to the transversalis fascia.I then closed the peritoneal flap bilaterally with running 2.0 V Lock suture x 2. The abdomen was then desufflated, and all ports were removed. All incisions were then closed with the 4.0 monocryl suture. Dermabond was placed on each wound. The patient tolerated the procedure well, was extubated in the operating room postoperatively, and will now be transferred to the recovery room in stable condition. Implants bilateral large 3DMax mesh Estimated Blood Loss 10 Drains No Packing No Pathology None sent Complications No immediate complications Condition Stable Disposition PACU [facility] Billing Surgery - Charge Forward: Surgery Billing
[2024-08-04] MEDS: fentaNYL CITRATE INJ (*CRX) 100 MCG/2 ML VIAL 25 MCG IV PUSH ×2 (14:44→14:49)
[2024-08-04 14:50] LABS: Glucose Point of Care 157 mg/dl (65-105)
== END 2024-08-04 16:42 | disposition home or self-care (01) ==
PROVIDERS: Anesthesiology; PCP Family Medicine Adolescent Medicine; Visit Provider Surgery
PROC: 8E0Y4CZ Robotic Assisted Procedure of Lower Extremity, Percutaneous Endoscopic Approach (ICD-10-PCS; CPT 49650; principal; 2024-08-04 12:00)
DX: K40.30 Unilateral inguinal hernia, with obstruction, without gangrene, not specified as recurrent (principal); K40.90 Unilateral inguinal hernia, without obstruction or gangrene, not specified as recurrent; I10 Essential (primary) hypertension; E11.42 Type 2 diabetes mellitus with diabetic polyneuropathy; K21.9 Gastro-esophageal reflux disease without esophagitis; Z87.891 Personal history of nicotine dependence; E78.5 Hyperlipidemia, unspecified
CPT/HCPCS: 49650; 36415; 82948; 85610; 85730; A9270; C1781; J0690; J1100; J1885; J2003; J2250; J2270; J2405; J2704; J3010; J7120

== ENCOUNTER 2025-05-08 14:40 | Outpatient (CLI) | payer MEDICARE, SELFPAY ==
--- NOTE | ~2025-05-08 | US_ITS ---
EXAMINATION: US soft tissue groin RT, 05/08/2025 15:02 [facility]ER HISTORY: R10.31 - Right lower quadrant pain Comparison: None Technique: Acosta-scale and color Doppler images were obtained. Findings: Correlating with the palpable area there is an inguinal hernia containing bowel maximally measuring 14 x 3 cm, the defect in the abdominal wall is not well visualized IMPRESSION: Large right inguinal hernia. CT recommended to assess Reviewed, dictated and finalized at location P. HER TACKER
== END 2025-05-08 14:41 | disposition home or self-care (01) ==
PROVIDERS: PCP Family Medicine; Visit Provider Surgery
DX: K40.90 Unilateral inguinal hernia, without obstruction or gangrene, not specified as recurrent (principal)
CPT/HCPCS: 76882